=== PATIENT | male | born 1990 | race Caucasian/White ===

== ENCOUNTER 2019-04-03 05:52 | Day surgery (SDC) | payer OTHER ==
[2019-04-03] MEDS ORDERED: CEFAZOLIN SODIUM IN 0.9 % NACL 2 GM/100 ML BAG IV ONE (06:35)
[2019-04-03] MEDS ORDERED: LACTATED RINGERS 1,000 ML IV ONE ×2 (07:00→09:32)
--- NOTE | 2019-04-03 07:11 | ANESTHESIA ---
Pre-Anesthesia VS, & Labs - Diagnosis right knee meniscal tear - Procedure right knee arthroscopy, meniscal debriedment Vital Signs: Temp Pulse Resp BP Pulse Ox 36.3 C L 60 16 132/87 H 98 04/03/19 06:43 04/03/19 06:43 04/03/19 06:43 04/03/19 06:43 04/03/19 06:43 Height 6 ft 5 in Weight (kg) 106.59 kg - NPO >8 hours Home Medications and Allergies Home Medications: Ambulatory Orders Cholecalciferol (Vitamin D3) [Vitamin D3] 1,000 unit PO 03/24/19 Ibuprofen [Motrin] 600 mg PO Q6H PRN 03/24/19 diphenhydrAMINE [Benadryl] 25 mg PO ONCE 04/03/19 Cholecalciferol (Vitamin D3) [Vitamin D3] 1,000 unit PO 03/24/19 Ibuprofen [Motrin] 600 mg PO Q6H PRN 03/24/19 diphenhydrAMINE [Benadryl] 25 mg PO ONCE 04/03/19 Allergies/Adverse Reactions: Allergies Allergy/AdvReac Type Severity Reaction Status Date / Time No Known Drug Allergies Allergy Verified 04/03/19 06:52 Anes History & Medical History - Anesthetic History Anesthesia Complications: reports: No previous complications Family history of Anesthesia Complications: Denies Family history of Malignant Hyperthermia: Denies - Medical History Cardiovascular: reports: None Pulmonary: reports: None Gastrointestinal: reports: None Urinary: reports: None Musculoskeletal: reports: Other Endocrine/Autoimmune: reports: None Skin: reports: None Exam General: Alert, Oriented x3, Cooperative, No acute distress Dental: WNL Mouth Openin Fingerbreadth Neck Mobility: Normal Mallampati classification: II Thyromental Distance: 4-6 cm Respiratory: Lungs clear, Normal breath sounds, No respiratory distress, No accessory muscle use Cardiovascular: Regular rate, Normal S1, Normal S2, No murmurs Plan Anesthesia Type: General Consent for Procedure(s) Verified and Reviewed: No Code Status: Attempt Resuscitation ASA classification: 1-Healthy patient Is this case an emergency?: No
[2019-04-03] MEDS ORDERED: BUPIVACAINE 0.25% PF 30 ML VIAL ONE (07:25)
[2019-04-03] MEDS ORDERED: EPINEPHrine 1 MG/ML AMP ONE (07:25)
[2019-04-03] MEDS ORDERED: BUPIVACAINE 0.25% PF 30 ML VIAL SUBQ ONE ×2 (08:41)
[2019-04-03] MEDS ORDERED: EPINEPHrine 1 MG/ML AMP IR ONE (08:42)
[2019-04-03] MEDS ORDERED: ONDANSETRON 4 MG/2 ML VIAL IVP PRN (09:12)
[2019-04-03] MEDS ORDERED: oxyCODONE 5 MG TABLET PO PRN (09:12)
--- NOTE | 2019-04-03 09:17 | OPERATIVE REPORT ---
Operative Report - Other Other Information/Narrative: Date of Surgery: 03 April 2009 Pre-Op Diagnosis: Right knee pain Procedure: Right knee arthroscopy with medial plica excision and fat pad debridement Postop Diagnosis: Right knee medial plica syndrome and fat pad impingement Primary Surgeon: Robin Rodriguez Secondary Surgeon: None Complications: None Tourniquet Time: 29 minutes EBL: 2 cc Indication For Surgery: 28-year-old male with a long history of medial sided right knee pain that has not responded to conservative measures. An injection gave complete relief for 1 day. We discussed a diagnostic arthroscopy with treatment as indicated. The risks, benefits, and alternatives were discussed. Risks include pain, bleeding, infection, damage to nearby structures and cartilage, lack of symptom relief, need for further surgery, DVT, PE, stroke, and . Written consent was obtained. Examination Under Anesthesia: ROM equal to the contralateral side. Stable dial at 30 & 90 degrees. Stable to varus and valgus stressing at 0 & 30 degrees. 1A Eric. Normal Pivot shift. No mechanical sensation Arthroscopic Findings: No loose bodies. Synovium injected with exuberant injected fat pad, a medial plica was seen. Patella cartilage intact. Trochlear cartilage grade 1 softening. Medial femoral condyle cartilage intact. Medial tibial plateau cartilage intact. Medial meniscus intact. ACL was intact. PCL was intact. Lateral femoral condyle cartilage intact. Lateral tibial plateau cartilage intact. Lateral meniscus intact. Procedure in Detail: The patient was met in the pre-operative hold area on the day of the procedure. The operative extremity was signed and questions were answered. The patient was brought to the operating room and a general anesthetic was administered. Supine position was used and bony prominences were padded. An examination under anesthesia was performed. Standard prepping and draping was performed. A time out confirmed patient identification, laterality, procedure, allergies, antibiotics, and images. An Esmarch was used to exsanguinate the limb and the tourniquet was elevated to 250 mmHg. A standard diagnostic arthroscopy of the knee was performed through anterolateral and anteromedial portal sites. The anteromedial portal was cre ated under direct visualization after localizing with a spinal needle. The findings can be found above. I then proceeded to use the shaver to debride the medial plica back to the capsule. I also debrided ligamentum mucosum and the injected exuberant fat pad on both the medial and lateral side viewing from the opposite. I clear the area extensively. Final images were taken and all arthroscopic fluid and instruments were removed from the knee. The incisions were closed with buried monocryl sutures. Steri strips were applied. 20 cc of 0.25% Marcaine without epinephrine was injected near the portal sites. A sterile dressing and compression stocking was placed. The patient was awakened and transferred to recovery in stable condition.
[2019-04-03] MEDS: fentaNYL 100 MCG/2 ML VIAL ONE ×2 (09:18→09:31)
[2019-04-03] MEDS ORDERED: oxyCODONE 5 MG TABLET ONE (10:07)
[2019-04-03] MEDS ORDERED: ONDANSETRON ODT 4 MG TABLET ONE (10:22)
[2019-04-03 10:42] VITALS: BP 120/83
== END 2019-04-03 05:53 | disposition home or self-care (01) ==
LOC: SDS 05:52
PROVIDERS: ATTEND Orthopaedic Surgery
PROC: 0SBC4ZZ Excision of Right Knee Joint, Percutaneous Endoscopic Approach (ICD-10-PCS; principal; 2019-04-03 07:30)
DX: M67.51 Plica syndrome, right knee (principal)
CPT/HCPCS: 29877; A9270; J0690; J7120; Q0162

== ENCOUNTER 2019-07-13 14:12 | Outpatient (CLI) | payer OTHER ==
--- NOTE | 2019-07-13 15:52 | SLEEP CARE CONSULTATION ---
Information from patient questionnaire entered by Batool Enriquez. I have reviewed and concur with the information entered by Batool Enriquez. This document represents the service I personally performed and the decisions made by me, Vanessa Vanessa RN, MSN, PURCHASING INTERN. History of Present Illness Reason for Visit: New patient Chief Complaint: reports: Insomnia, Unrefreshed sleep, Snoring, Excessive daytime sleepiness, Observed pauses in breathing (recently observed by roomate intiated process of evaluation), Fatigue, Frequent awakenings at night Duration of Symptoms: 4 years Usual bedtime: 2200 Time it takes to fall asleep: 10-30 minutes Snores at night: Yes Observed to quit breathing while asleep: Yes Sleeps alone due to snoring: No Number of times waking at night: 6-9 Reasons for waking at night: reports: Snoring, Gasping for air (especially on back ), Other (dry mouth, unknown) Toss, Turn, or Twitch while sleeping: Yes Recalls having dreams: Yes Usually gets out of bed at: 0540 Feels refreshed in the morning: No Morning headache: No Sleepy or fatigued during the day: Yes Ever fallen asleep while driving: Yes (mainly on long distances, no accident) Takes day naps: Yes (1-2 times a month for about an hour) Dreams during day naps: Yes Prior sleep studies: No - Parasomnia Symptoms Ever been unable to move upon waking from sleep: Yes (a few times in life , last time in October) Walks in sleep: No Talks in sleep: Yes (occasionally ) Ever acted out dreams in sleep: No Ever felt weak in the knees when startled or emotional: Yes (has had recent knee surgery ) Bothered by creepy, crawly, restless sensations in legs: Yes (occasionally ) Problems with memory or concentration: Yes Subjective Initial [place] Sleepiness Scale score: 9 Past Medical History Past Medical History: reports: Anxiety, Depression (denies thoughts of hurting self or others) Social History The patient's occupation is active . Patient is Single and lives in [place]. Have you smoked in the past 12 months: No Alcohol use: Yes Alcohol amount and frequency: 6 beers a night or more on weekends Caffeine use: Yes Caffeine amount and frequency: 1 energy drink a day during the work days - 3 days a week. Family History Family history of sleep disordered breathing: Yes Family Hx Sleep Apnea: Mother: Snoring, Sleep apnea - Treated (just started CPAP) Allergies and Home Medications Known drug allergies: No Home medication list reviewed: Yes Allergy and home medication list: Wellbutrin daily new skin cream / shampoo for psoriasis zantac prn heartburn Review of Systems Gastrointestinal: reports: heartburn Psychiatric: reports: anxiety, depression Ear/Nose/Throat: reports: nose bleeds (seasonal ), wisdom teeth removed Endocrine: reports: sluggishness Musculoskeletal: reports: joint pain, neck pain, back pain Immunologic: reports: sneezing (seasonal ) Physical Exam Blood Pressure: 106/70 Cuff size: long Heart Rate: 63 O2 Saturation: 98 Height: 6 ft 4.5 in Weight: 238 lb Body Mass Index: 28.5 BMI Classification: Overweight Neck circumference: 16.5 HEENT: No craniofacial malformation Nostrils: partially obstructed Turbinates: swollen Septum: deviated right Mouth and throat: narrow oropharynx Soft palate: long Hard palate: normal Uvula: normal Uvula visualization: 50% Mallampati Class II Tongue: enlarged in size with teeth julien on lateral edges Chin and jaw: Overjet (slight) Neck: normal w/o lymphadenopathy or thyromegaly Heart: regular rate and rhythm Lungs: clear bilaterally Extremities: no edema or clubbing Neurologic: intact Impression and Plan 1. Suspected Obstructive Sleep Apnea-Hypopnea Syndrome, as suggested by a history of loud and irregular snoring, observed cessation of breath while asleep, gasping or choking in sleep, frequent awakening during the night, unrefreshed sleep, cognitive impairment, and excessive daytime sleepiness. Narrow oropharynx and obesity are common predisposing factors for obstructive sleep apnea-hypopnea syndrome. His mild overjet can also indicate risk of smaller airway. I recommend proceeding to polysomnography to confirm the diagnosis and to assess severity. If the patient has significant sleep disordered breathing, a manual CPAP titration study will also be performed to find the optimal treatment pressure. I informed the patient of what the sleep studies involve and after some discussion, obtained agreement to proceed. The pathophysiology of obstructive sleep apnea-hypopnea syndrome was discussed with the patient and health risks of cardiovascular and cerebrovascular disease if not treated. AAS brochure for obstructive sleep apnea-hypopnea syndrome given and reviewed. 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 Patient agreed to plan. * Schedule polysomnography +- manual CPAP titration study. * Avoid long distance driving or driving when feeling sleepy. * Avoid alcohol, sedative and muscle relaxant around bedtime. * Attempt to lose weight. * Review instructions provided by trained office staff on how to prepare for the sleep study. * Return for follow-up after sleep study completed. I spent 100% of this 35 minute visit face to face with the patient with greater than 50% of this was spent time counseling the patient and coordination of care.
[2019-07-13 15:53] VITALS: BP 106/70
== END 2019-07-13 14:13 | disposition home or self-care (01) ==
LOC: SC 14:12
PROVIDERS: ATTEND Nurse Practitioner Family
DX: R06.83 Snoring (principal); R06.81 Apnea, not elsewhere classified; G47.8 Other sleep disorders; R41.89 Other symptoms and signs involving cognitive functions and awareness; G47.10 Hypersomnia, unspecified
CPT/HCPCS: 99203; 99212

== ENCOUNTER 2019-08-05 20:43 | Outpatient (CLI) | payer OTHER | END 2019-08-05 20:44 | disposition home or self-care (01) | LOC: SC 20:43 | PROVIDERS: ATTEND Internal Medicine Pulmonary Disease | DX: G47.33 Obstructive sleep apnea (adult) (pediatric) (principal) | CPT/HCPCS: 95810 ==

== ENCOUNTER 2019-09-01 10:36 | Outpatient (CLI) | payer OTHER ==
[2019-09-01 11:12] VITALS: BP 110/80
--- NOTE | 2019-09-01 11:12 | SLEEP CARE CONSULTATION ---
Information from patient questionnaire entered by Batool Enriquez. I have reviewed and concur with the information entered by Batool Enriquez. This document represents the service I personally performed and the decisions made by me, Vanessa Vanessa RN, MSN, PIT INSPECTOR. History of Present Illness Initial [place] Sleepiness Scale score: 9 Current [place] Sleepiness Scale score: 7 Additional HPI information: ADALID CHINCHILLA returns for follow up and results of the recently performed polysomnography. I explained the pathophysiology behind obstructive sleep apnea. We then spent quite a bit of time discussing different treatment options. For mild obstructive sleep apnea, surgery and oral appliance are alternatives to nasal CPAP therapy but in moderate or severe cases, nasal CPAP is the most effective and reliable treatment. Because apnea is primarily in supine position, then positional management therapy could be effective. Methods discussed such as positioning with pillows, using a T-shirt with tennis balls in the back, and shown commercial products that have a pillow format on back to prevent supine sleep. I reviewed the impact of weight changes on sleep apnea and strongly recommended losing weight. After some discussion, the patient opted to go with the nasal CPAP therapy. When discussing process of initiating therapy, he preferred starting with a manual titration study rather then autoCPAP. Patient counseled not drink alcohol less than 4 hours before bedtime as it can increase snoring and apnea. Patient does not drink alcohol. Patient was cautioned about risks of drowsy driving until sleepiness symptoms resolve. Patient denies drowsy driving recently unless long distance driving. 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 Sleep Study - Results Polysomnography/Home Sleep Study results: The quality of the study is good. The patient had normal sleep efficiency. Except for mild sleep fragmentation, the sleep architecture was normal as well. Respiratory monitoring showed mild obstructive sleep apnea-hypopnea (AHI = 5.5) associated with frequent arousals, oxyhemoglobin desaturation and minimal hypoxia (raul oxygen saturation of 89%). The respiratory events occurred almost exclusively during supine sleep (supine AHI = 9.3; non-supine = 0.89). Snore was light in intensity. There was no significant periodic leg movement of sleep. Cardiac rhythm was normal sinus rhythm without significant arrhythmia. No abnormal behavior (parasomnia) observed during the night. Allergies and Home Medications Known drug allergies: Yes Home medication list reviewed: Yes (no changes since last visit) Review of Systems Review of systems same as previous: Yes Physical Exam Blood Pressure: 110/80 Heart Rate: 64 O2 Saturation: 98 Height: 6 ft 4.5 in Weight: 242 lb (with boots) Body Mass Index: 29.0 BMI Classification: Overweight Impression and Plan 1. Obstructive Sleep Apnea-Hypopnea Syndrome, mild, with lowest oxygen saturation of 89%. Obviously this is the cause of the patients symptoms of unrefreshed sleep, and excessive daytime sleepiness. Positive pressure therapy could benefit his depression.Because the apnea is more severe supine, I instructed to avoid sl eeping supine using pillow positioning until able to start CPAP use.] As mentioned above, the patient will be a manual titration study * Schedule manual titration study. * Attempt to lose weight. * Avoid alcohol consumption near bedtime. * Avoid supine sleep until using CPAP. * The patient is again cautioned about driving until sleepiness completely resolves. * Return after study completed. [ Time Spent with Patient (minutes): 30 I spent 100% of this visit face to face with the patient with greater than 50% of this was spent time counseling the patient and coordination of care.
== END 2019-09-01 10:37 | disposition home or self-care (01) ==
LOC: SC 10:36
PROVIDERS: ATTEND Nurse Practitioner Family
DX: G47.33 Obstructive sleep apnea (adult) (pediatric) (principal)
CPT/HCPCS: 99212; 99214

== ENCOUNTER 2019-09-16 20:32 | Outpatient (CLI) | payer OTHER | END 2019-09-16 20:33 | disposition home or self-care (01) | LOC: SC 20:32 | PROVIDERS: ATTEND Internal Medicine Pulmonary Disease | DX: G47.33 Obstructive sleep apnea (adult) (pediatric) (principal); G47.63 Sleep related bruxism | CPT/HCPCS: 95811 ==

== ENCOUNTER 2019-10-01 13:53 | Outpatient (CLI) | payer OTHER ==
--- NOTE | 2019-10-01 15:08 | SLEEP CARE CONSULTATION ---
Information from patient questionnaire entered by Irlanda Kelly. I have reviewed and concur with the information entered by Irlanda Kelly. This document represents the service I personally performed and the decisions made by me, Vanessa Vanessa, RN, MSN, ENGRAVING PRESS OPERATOR. History of Present Illness Initial [place] Sleepiness Scale score: 9 Current [place] Sleepiness Scale score: 11 Additional HPI information: ADALID CHINCHILLA returns for follow up and results of the recently performed manual titration study. I explained the pathophysiology behind obstructive sleep apnea. The study showed that 5cmH20 was optimal. After some discussion, the patient opted to continue with plan for nasal CPAP therapy as he slept well and woke up rested. Because the nasl mask caused nasal soreness at end of study, he was fitted with a Dreamwear fullface mask and it felt much more comfortable with pressure. Nasal autoCPAP set at 5cmH20 will be ordered with rationale explained. I explained how CPAP machine works with sample devices [employer] Dreamstation and Res[employer]aut [id number] and what to expect when using the machine. Using CPAP every night in order to get used to it was emphasized. Patient advised to put CPAP mask on before getting into bed so as not to fall asleep without CPAP. To assist acclimation to CPAP use, it could also be used for a short time during day while reading or watching TV. The patient was instructed to call the CPAP supplier to discuss any mechanical problem that may occur. If the mask given is uncomfortable or is difficult to keep on through the night even with adjustment, contact the CPAP supplier as many will replace with another mask style if notified before 30 days. If snoring or perceives is not getting enough air or too much air from the machine, notify this office. AASM patient education PAP tips reviewed and given to patient. Dreamstation autoCPAP preferred by patient. Patient counseled not drink alcohol less than 4 hours before bedtime as it can increase snoring and apnea. Patient does not drink alcohol. Patient was cautioned about risks of drowsy driving until sleepiness symptoms resolve. Patient denies drowsy driving. Sleep Study - Results Polysomnography/Home Sleep Study results: The quality of the study is good. CPAP was initiated at 5 cmH2O and titrated up to CPAP at 6 cmH2O. CPAP at 5 cmH2O appeared to be optimal (AHI of 0.6 per hour on the pressure). There was supine REM sleep on the pressure. Oxygen saturation was normal throughout the night. The patient appeared to have tolerated positive airway pressure therapy very well. The patients sleep efficiency was normal. The sleep architecture was normal as well.. There was no significant periodic leg movement of sleep. Cardiac rhythm was normal sinus rhythm without significant arrhythmia. No abnormal behavior (parasomnia) observed during the night except for bruxism. Allergies and Home Medications Known drug allergies: No Home medication list reviewed: Yes Allergy and home medication list: new antidepressant replacing wellbutrin zantac prn shampoo for psoriasis Review of Systems Review of systems same as previous: Yes Physical Exam Blood Pressure: 112/70 Cuff size: long Heart Rate: 77 O2 Saturation: 98 Height: 6 ft 4.5 in Weight: 242 lb (with boots) Body Mass Index: 29.0 BMI Classification: Overweight Impression and Plan 1. Obstructive Sleep Apnea-Hypopnea Syndrome, mild, controlled with CPAP set at 5cmH20. Possibly this is the cause of the patients symptoms of unrefreshed sleep, and excessive daytime sleepiness. Positive pressure therapy could benefit his anxiety and depression. As mentioned above, the patient will be started on nasal autoCPAP therapy with pressure set at 5 cmH2O. Compliance guidelines also reviewed. A copy of compliance guidelines will be given for reference at check out. Because the apnea is more severe supine, I instructed to avoid sleeping supine using pillow positioning until able to start CPAP use. * Nasal auto CPAP therapy, pressure at 5cm H2O. * Dreamstation preferred by patient. * Attempt to lose weight. * Avoid alcohol consumption near bedtime. * Avoid supine sleep until using CPAP. * The patient is again cautioned about driving until sleepiness completely resolves. * Return one month after CPAP obtained. I will assess response to therapy and compliance at that time. Time Spent with Patient (minutes): 30 I spent 100% of this visit face to face with the patient with greater than 50% of this was spent time counseling the patient and coordination of care.
[2019-10-01 15:09] VITALS: BP 112/70
== END 2019-10-01 13:54 | disposition home or self-care (01) ==
LOC: SC 13:53
PROVIDERS: ATTEND Nurse Practitioner Family
DX: G47.33 Obstructive sleep apnea (adult) (pediatric) (principal); E66.3 Overweight; Z68.29 Body mass index [BMI] 29.0-29.9, adult
CPT/HCPCS: 99212; 99214

== ENCOUNTER 2019-12-10 17:01 | Outpatient (CLI) | payer OTHER ==
--- NOTE | 2019-12-10 17:29 | SLEEP CARE CONSULTATION ---
Information from patient questionnaire entered by Batool Enriquez. I have reviewed and concur with the information entered by Batool Enriquez. This document represents the service I personally performed and the decisions made by me, Vanessa Vaenssa, RN, MSN, MEAL ATTENDANT. History of Present Illness Service Date and Time: 12/10/2019 1630 Previous diagnosis: Mild, Obstructive Sleep Apnea-Hypopnea Syndrome AHI: 5.5 Reason for follow up: first compliance Equipment type: CPAP Equipment obtained from: [facility] Mask style: Full face Backup mask available: Yes (alternating between nasal and full face mask due to skin irritation) Last cushion change: not since set up Prior sleep studies: Yes Type of Sleep Study: Polysomnography CPAP Compliance Data - Data Reviewed with Patient Average duration of nightly device use: 5h 9m Compliance rate %: 73.3 Current pressure setting (cmH2O): 4-20 Humidity settin Heated hose settin Average residual AHI: 3.1 Average large leak: 19s Subjective Patient concerns: reports: aerophagia (for first week only ), mask discomfort (skin irritation if shaves after wearing full face mask ), mask leak noise (when pillow pushes into face), nasal congestion (seasonal , none now), epistaxis (at season change -chronic / has had cauterization twice and much less now ). denies: air blowing in eyes, condensation in mask/hose, dry mouth, nose, throat, other Observed to snore while using device: No Current pressure setting perceived as: too high (a couple of times) On therapy, patient: reports: sleeping better, more rested overall. denies: drowsiness while driving, other Initial [place] Sleepiness Scale score: 9 Current [place] Sleepiness Scale score: 10 Allergies and Home Medications Home medication list reviewed: No (depression medication changed) Review of Systems Review of systems same as previous: Yes Physical Exam Height: 6 ft 4.5 in Impression and Plan 1. Obstructive Sleep Apnea-Hypopnea Syndrome, mild, with good treatment compliance and good apnea control. On CPAP therapy, the patient has better sleep quality and is more rested overall. He is pleased with benefit of CPAP use especially when he gets adequate sleep. I explained the increase risk of apnea in later sleep and advised him to keep his CPAP on the last hour of sleep. I counseled him how most people require 7-9 hours of sleep and advised him to overall strive for more sleep. In addition, I explained how less than 5-6 hours can increase increase health risks. He states sometimes he is not really aware of taking off mask late in sleep. Perhaps it is due to mask discomfort or pressure. Mask leaks predominately from when patient sleeps on their side can be reduced by using a CPAP pillow. A CPAP pillow sample was shown. This and other styles can be purchased online. He is advised to discuss his mask concerns with [facility] so the proper replacment cushion can be ordered. Rationale discussed why to regularly change mask cushions. I will also reduce the pressure range to 5- 6cmH20. This should improve pressure comfort. Patient advised to contact me if any discomfort from pressure change. It is unclear why he was set up at 4-20c mH20 instead of the 5 cmH20 ordered. Nasal congestion and nasal can be reduced with increasing the CPAP humidity as shown on sample device or heated hose reduced. The heated hose can be adjusted higher if condensation with higher humidity setting. Saline nasal spray sample can also be bought to use prior to CPAP to clear nasal secretions and wash off any nasal allergens to facilitate nasal breathing as well as in the morning for additional moisture. In addition, a steamy shower before bed will often assist nasal drainage. Patient's apnea severity and rationale for treatment to reduce apnea, improve sleep quality and reduce cardiovascular and cerebrovascular events was reviewed. I also reviewed the benefit of consistent device use of CPAP for anxiety and depression. * * Change CPAP pressure to 5-6 cmH2O * Implement methods to reduce nasal symptoms * Obtain more sleep. * Notify me if snoring with mask or feeling that the pressure is too much or too little * Call this office if any problems using CPAP * Return for follow up in , or sooner if concerns arise Visit Type: Telehealth Video (to minimize the risk of COVID 19 exposure, the patient agreed to this visit and to bill his insurance) Video Type: [employer] Patient Location: Home Location of Provider: Home Patient agrees and consents to this telehealth visit type: Yes Time Spent with Patient (minutes): 30 Provider Statement: I spent 100% of the Telehealth Video Call with the patient with greater than 50% spent counseling the patient and coordination of care.
== END 2019-12-10 17:02 | disposition home or self-care (01) ==
LOC: SC 17:01
PROVIDERS: ATTEND Nurse Practitioner Family
DX: G47.33 Obstructive sleep apnea (adult) (pediatric) (principal)

== ENCOUNTER 2020-09-14 14:59 | Outpatient (CLI) | payer OTHER ==
--- NOTE | 2020-09-14 15:33 | SLEEP CARE CONSULTATION ---
Information from patient questionnaire entered by David Fisher. I have reviewed and concur with the information entered by David Fisher. This document represents the service I personally performed and the decisions made by me, Laura Schneider ARNP. History of Present Illness Service Date and Time: 09/14/2020 1459 Previous diagnosis: Mild, Obstructive Sleep Apnea-Hypopnea Syndrome AHI: 5.5 Reason for follow up: six month (Followup) Equipment type: CPAP Equipment obtained from: [employer] (getting supplies now) Mask style: Nasal Backup mask available: Yes (other mask) Last cushion change: last week Prior sleep studies: Yes Year and Where: [facility] additional information: CHANCE CHINCHILLA was diagnosed to have mild, AHI 5.5, obstructive sleep apnea-hypopnea syndrome and returned today for CPAP therapy six month follow-up. CPAP Compliance Data - Data Reviewed with Patient Average duration of nightly device use: 7 h 36 min Compliance rate %: 73.3 Current pressure setting (cmH2O): 5-6 Humidity settin Heated hose settin Average residual AHI: 2.2 Average large leak: 5 sec Subjective Missed days of use due to: reports: other (power outages) Patient concerns: reports: aerophagia (bloated, sometimes; no burping; much better with nasal cushion mask), mask discomfort (improved with the nasal cushion mask), air blowing in eyes, dry mouth, nose, throat (he forgets to fill the water reservoir). denies: mask leak noise, condensation in mask/hose, nasal congestion, epistaxis, other Observed to snore while using device: No Current pressure setting perceived as: comfortable On therapy, patient: reports: sleeping better, awakening more refreshed, being more awake and alert during the day, more rested overall. denies: drowsiness while driving Initial Orange Sleepiness Scale score: 9 (in 2019) Current Orange Sleepiness Scale score: 7 Allergies and Home Medications Drug allergies reviewed: Yes (NKDA) Home medication list reviewed: Yes (no changes) Review of Systems Review of systems same as previous: Yes (no changes) Physical Exam Heart Rate: 68 O2 Saturation: 97 Height: 6 ft 4.5 in Weight: 260 lb Body Mass Index: 31.2 BMI Classification: Obese Impression and Plan 1. Obstructive Sleep Apnea-Hypopnea Syndrome, mild, with fair treatment compliance and good apnea control. On CPAP therapy, the patient has better sleep quality and is more rested overall. Chance has been having some skin breakouts around his mouth with using the full face mask but he changed to a nasal cushion mask and this has resolved. He does get some air leaks when turned on his side but he has bought a smaller pillow that has reduced the movement of the mask and getting the nasal cushion mask has also improved this overall. He had some occasional dry mouth but found that this was only when he forgot to fill up the water reservoir before going to bed. Mask leaks can be reduced by washing mask daily and changing mask cushions more frequently to improve mask seal and comfort. Additionally, mask leaks predominately from when patient sleeps on their side can be reduced by using a CPAP pillow. He feels the smaller pillow is working well. He has no other concerns and is getting comfortable with its use. Patient's apnea severity and rationale for treatment to reduce apnea, improve sleep quality and reduce cardiovascular and cerebrovascular events was reviewed. * Continue auto CPAP pressure at 5-6 cmH2O * Notify me if snoring with mask or feeling that the pressure is too much or too little * Attempt to lose weight * Call this office if any problems using CPAP * Return for follow up in 1 year, or sooner if concerns arise Counseling Topics: Spare mask, Weight loss health impact Visit Type: In Office Time Spent with Patient (minutes): 20 Provider Statement: I spent 100% of the Face to Face Visit with the patient with greater than 50% spent counseling the patient and coordination of care.
== END 2020-09-14 15:00 | disposition home or self-care (01) ==
LOC: SC 14:59
PROVIDERS: ATTEND Nurse Practitioner Family
DX: G47.33 Obstructive sleep apnea (adult) (pediatric) (principal); E66.9 Obesity, unspecified; Z68.31 Body mass index [BMI] 31.0-31.9, adult
CPT/HCPCS: 99212; 99213

== ENCOUNTER 2021-07-28 14:09 | Outpatient (CLI) | payer OTHER ==
[2021-07-28 14:58] VITALS: BP 129/99
--- NOTE | 2021-07-28 14:58 | SLEEP CARE CONSULTATION ---
Information from patient questionnaire entered by Madai Pandey MA. I have reviewed and concur with the information entered by Madai Pandey MA. This document represents the service I personally performed and the decisions made by , Laura Schneider ARNP. History of Present Illness Service Date and Time: 07/28/2021 1409 Previous diagnosis: Mild, Obstructive Sleep Apnea-Hypopnea Syndrome AHI: 5.5 Reason for follow up: other (11 MONTH F/U RECALL) Equipment type: CPAP Equipment obtained from: [employer] (getting supplies as needed) Mask style: Nasal Backup mask available: Yes (old mask) Last cushion change: 2 weeks ago Prior sleep studies: Yes Year and Where: [facility] additional information: ADALID CHINCHILLA was diagnosed to have mild, AHI 5.5, obstructive sleep apnea-hypopnea syndrome and returned today for CPAP therapy 11 month follow-up. Sleep Study - Results Prior sleep studies: Yes Year and Where: [facility] CPAP Compliance Data - Data Reviewed with Patient Average duration of nightly device use: 7 HOURS 6 MINUTES Compliance rate %: 88.9 Current pressure setting (cmH2O): 5-6 Humidity settin Heated hose settin Average residual AHI: 3.5 Average large leak: 5 MINUTES 11 SECONDS Subjective Missed days of use due to: reports: other (recall) Patient concerns: reports: dry mouth, nose, throat (occasional), other (rubbing hair out of head; would like to change headgear style ). denies: aerophagia, mask discomfort, air blowing in eyes, mask leak noise, condensation in mask/hose, nasal congestion, epistaxis Observed to snore while using device: No Current pressure setting perceived as: comfortable On therapy, patient: reports: sleeping better, awakening more refreshed, being more awake and alert during the day, more rested overall. denies: drowsiness while driving Initial Elmo Sleepiness Scale score: 9 (in 2018) Current Elmo Sleepiness Scale score: 8 (in 2020) Allergies and Home Medications Known drug allergies: No Drug allergies reviewed: Yes (now taking Adderall for ADHD) Home medication list reviewed: Yes (ADDERALL) Review of Systems Review of systems same as previous: No (ADHD) Physical Exam Vital signs obtained and entered by: Racquel PANDEY CMA [facility] Blood Pressure: 129/99 (right) Cuff size: wrist Heart Rate: 89 O2 Saturation: 99 (with mask) Height: 6 ft 4.5 in Weight: 234 lb (with clothes) Body Mass Index: 28.0 BMI Classification: Overweight Impression and Plan 1. Obstructive Sleep Apnea-Hypopnea Syndrome, mild, with good treatment compliance and good apnea control. On CPAP therapy, the patient has better sleep quality and is more rested overall. Patient has had problems with the headgear rubbing his scalp causing hair loss on top of head. He has switched to a nasal cushion mask but would like to try a different headgear style that does not go on top of his head. I will write for a mask refitting for him to be able to obtain a different style that will not casus hair loss. Patient comes in with questions about the recall. Patient has already registered their device for the recall. Patient denies any black particles seen in machine or hoses, any unusual odors coming from device. Patient has not experienced any physical symptoms such as upper airway irritation, headache, skin or eye irritation, asthma, nausea/vomiting, difficulty breathing or chest pain. If patient is not able to sleep due to waking up choking, gasping for air or other respiratory distress that they may decide to continue using it until it is either replaced or repa ired. Patient has [employer] insurance that may replace his recalled device. A DWO prescription will be made. Compliance guidelines for new device and follow up discussed. I reviewed his last sleep study and patient may do positional therapy to control his apneas until his device is replaced. Patient voiced understanding and agreement with plan. Patient's apnea severity and rationale for treatment to reduce apnea, improve sleep quality and reduce cardiovascular and cerebrovascular events was reviewed. Patient was also encouraged to lose weight for their overall health and to reduce apneas. * Continue auto CPAP pressure at 5-6 cmH2O or do positional therapy until receives replacement device * Order for replacement device for [employer] on recall with insurance * Mask refitting for nasal mask * Notify me if snoring with mask or feeling that the pressure is too much or too little * Attempt to lose weight * Call this office if any problems using CPAP * Return for follow up one month after obtaining new device, or sooner if concerns arise Counseling Topics: Spare mask, Weight loss health impact Visit Type: In Office Time Spent with Patient (minutes): 24 Provider Statement: I spent 100% of the Face to Face Visit with the patient with greater than 50% spent counseling the patient and coordination of care.
== END 2021-07-28 14:10 | disposition home or self-care (01) ==
LOC: SC 14:09
PROVIDERS: ATTEND Nurse Practitioner Family
DX: G47.33 Obstructive sleep apnea (adult) (pediatric) (principal)
CPT/HCPCS: 99212; 99213

== ENCOUNTER 2022-01-22 06:00 | Outpatient (CLI) | payer OTHER ==
--- NOTE | 2022-01-22 16:09 | XRAY Report ---
PROCEDURE: Shoulder 3 View LT INDICATIONS: SHOULDER PAIN TECHNIQUE: 4 views of the shoulder were acquired. COMPARISON: None. FINDINGS: Bones: No fractures or dislocations. No suspicious bony lesions. Visualized ribs appear intact. Soft tissues: No suspicious soft tissue calcifications. IMPRESSION: Normal left shoulder. Reviewed by: Hiwot Kelly MD on 01/22/2022 4:07 PM PDT Approved by: Hiwot Kelly MD on 01/22/2022 4:07 PM PDT Station ID: [id number]
== END 2022-01-22 23:59 | disposition home or self-care (01) ==
LOC: DI.WOS 06:00
PROVIDERS: ATTEND Physician Assistant Surgical
DX: M25.512 Pain in left shoulder (principal)

== ENCOUNTER 2023-10-31 15:16 | Outpatient (CLI) | payer OTHER ==
--- NOTE | 2023-10-31 15:38 | Sleep Patient Instructions ---
Sleep Center Visit Summary - Patient Visit Information Reason for Visit: Annual follow-up - Patient Instructions Additional Instructions: You will continue with CPAP therapy with pressure set at 5-6 cmH2O. A supply prescription will be updated with your DME. We encourage you to continue to try to lose weight. Please follow up with the sleep care office in 1 year. - Clinic Information Contact: [facility] [address] [place] [address] [email or web address] T: [phone]
--- NOTE | 2023-10-31 15:43 | SLEEP CARE CONSULTATION ---
Information from patient questionnaire entered by Wilbert Moy. I have reviewed and concur with the information entered by Wilbert Moy. This document represents the service I personally performed and the decisions made by me, Laura Schneider ARNP. History of Present Illness Service Date and Time: 10/31/2023 1516 Previous diagnosis: Mild, Obstructive Sleep Apnea-Hypopnea Syndrome AHI: 5.5 Reason for follow up: annual (07/26/2021) Equipment type: CPAP (RESMED AIRSENSE 11 AUTOSET) Equipment obtained from: [employer] (getting supplies as needed) Mask style: Nasal pillows Backup mask available: Yes Last cushion change: couple months Prior sleep studies: Yes Year and Where: [facility] additional information: ADALID CHINCHILLA was diagnosed to have mild, AHI 5.5, obstructive sleep apnea-hypopnea syndrome and returned today for CPAP therapy annual follow-up. Sleep Study - Results Prior sleep studies: Yes [facility] CPAP Compliance Data - Data Reviewed with Patient Average duration of nightly device use: 6 HRS 19 MINS Compliance rate %: 75 (10/29/22-10/28/23; 298/365 days used) Current pressure setting (cmH2O): 5-6 Average residual AHI: 1.0 Central apnea: 0.4 Obstructive apnea: 0.4 Hypopnea: 0.1 Average large leak: 1 L/min Subjective Missed days of use due to: reports: travel Patient concerns: reports: aerophagia (every so often, bloated and gassy in morning), mask discomfort, air blowing in eyes, mask leak noise, condensation in mask/hose (on deployment, now resolved), nasal congestion, dry mouth, nose, throat, epistaxis Observed to snore while using device: No Current pressure setting perceived as: comfortable On therapy, patient: reports: sleeping better, awakening more refreshed, being more awake and alert during the day, more rested overall. denies: drowsiness while driving Initial Jefferson Sleepiness Scale score: 9 (in 2019) Current Jefferson Sleepiness Scale score: 7 (10/31/23) Allergies and Home Medications Known drug allergies: No Drug allergies reviewed: Yes Home medication list reviewed: Yes (Naproxen) Allergy and home medication list: Allergies No Known Drug Allergies Allergy (Verified 10/29/23 15:08) Review of Systems Review of systems same as previous: Yes (NO CHANGE) Physical Exam Vital signs obtained and entered by: WILBERT Martin MA Blood Pressure: 119/78 (RIGHT ARM) Cuff size: regular Heart Rate: 89 O2 Saturation: 95 Height: 6 ft 4.5 in Weight: 246 lb 6.4 oz Body Mass Index: 29.6 BMI Classification: Overweight Impression and Plan 1. Obstructive Sleep Apnea-Hypopnea Syndrome, mild, with good treatment compliance and good apnea control. On CPAP therapy, the patient has better sleep quality and is more rested overall. Patient has significant improvement of their sleep apnea and is satisfied with current CPAP therapy. Patient has had occasional problems with his mask because he has had limited ability to get updated supplies. So he will get occasional leaking, mask leak noise or mask discomfort. He still will occasionally get some bloating feeling in the morning with increased gas. He says this is not often enough for it to be a problem. [place], he had problems with condensation in the tubing. Since being back he has some dry mouth, nose and in the last couple of weeks a few episodes of bloody noses. I talked to him about how to adjust his humidity and heated hose for comfort and to reduce condensation and dryness. He voiced understanding. Patient's apnea severity and rationale for treatment to reduce apnea, improve sleep quality and reduce cardiovascular and cerebrovascular events was reviewed. 2. Overweight, unspecified. Currently patients BMI is 29.6. Obesity increases the risk of apnea, CPAP pressure requirements and overall health risks especially cardiovascular and diabetes. Thus patient is advised to maintain a healthy weight. * Continue auto CPAP pressure at 5-6 cmH2O * Update supply prescription * Notify me if snoring with mask or feeling that the pressure is too much or too little * Maintain a healthy weight * Call this office if any problems using CPAP * Return for follow up in 12 months, or sooner if concerns arise Counseling Topics: Spare mask, Weight loss health impact Prescriptions: Device supplies Follow up with Sleep Care in: 1 year Visit Type: In Office Time Spent with Patient (minutes): 21 Provider Statement: I spent 100% of the Face to Face Visit with the patient with greater than 50% spent counseling the patient and coordination of care.
[2023-10-31 15:51] VITALS: BP 119/78; O2SAT 95
== END 2023-10-31 15:17 | disposition home or self-care (01) ==
LOC: SC 15:16
PROVIDERS: ATTEND Nurse Practitioner Family
DX: G47.33 Obstructive sleep apnea (adult) (pediatric) (principal); Z68.29 Body mass index [BMI] 29.0-29.9, adult
CPT/HCPCS: 99212; 99213

== ENCOUNTER 2024-02-11 13:47 | Outpatient (CLI) | payer OTHER ==
--- NOTE | 2024-02-11 19:04 | XRAY Report ---
PROCEDURE: Shoulder 2+V LT INDICATIONS: LEFT ROTATOR CUFF SYNDROME TECHNIQUE: 3 views of the shoulder were acquired. COMPARISON: 01/22/2022 FINDINGS: Bones: No fractures or dislocations. No suspicious bony lesions. Visualized ribs appear intact. Soft tissues: No suspicious soft tissue calcifications. IMPRESSION: Unremarkable shoulder radiographs Reviewed by: Vu Zhang MD on 02/11/2024 6:03 PM AKJORDAN Approved by: Vu Zhang MD on 02/11/2024 6:03 PM AKDT Station ID: [id number]
== END 2024-02-11 13:48 | disposition home or self-care (01) ==
LOC: DI 13:47
PROVIDERS: ATTEND Orthopaedic Surgery
DX: M75.102 Unspecified rotator cuff tear or rupture of left shoulder, not specified as traumatic (principal)